=== PATIENT | female | born 2000 | race Two or more races ===

== ENCOUNTER 2023-12-31 16:51 | Emergency (ER) | payer OTHER ==
[~2023-12-31] VITALS: Ht 165.1 cm; Wt 75.0 kg
[2023-12-31 17:00] VITALS: TEMP 98.1
[2023-12-31 18:24] LABS: BASOPHILS % (AUTO) 0.5 % (0.0-2.0); HEMATOCRIT 42.1 % (36-46); HEMOGLOBIN 14.2 g/dL (12.0-16.0); LYMPHOCYTES # (AUTO) 2.1 K/uL (1.0-4.8); LYMPHOCYTES % (AUTO) 33.4 % (22.0-44.0); MEAN CORPUSCULAR HEMOGLOBIN 32.7 pg (26.0-34.0); MEAN CORPUSCULAR HGB CONC 33.8 G/dL (31.0-37.0); MEAN CORPUSCULAR VOLUME 97 fL (80-100); MONOCYTES # (AUTO) 0.5 K/uL (0.1-1.0); MONOCYTES % (AUTO) 8.1 % (2.0-9.0); NEUTROPHILS # (AUTO) 3.3 K/uL (1.8-7.7); PLATELET COUNT (AUTO) 211 K/uL (150-450); RED BLOOD CELL COUNT(AUTO) 4.36 MIL/uL (4.00-5.20); RED CELL DISTRIBUTION WIDTH 12.3 % (11.5-14.5); WHITE BLOOD COUNT (AUTO) 6.2 K/uL (4.5-11.0)
[2023-12-31 18:40] LABS: ANION GAP 9 mmol/L (8-16); CALCIUM, TOTAL 8.8 mg/dL (8.8-10.5); CARBON DIOXIDE 29 mmol/L (22-29); CHLORIDE 100 mmol/L (98-107); CREATININE 0.68 mg/dL (0.60-1.30); GLOMERULAR FILTR. RATE CALC > 60 mL/min (>60); GLUCOSE,RANDOM 94 mg/dL (70-110); POTASSIUM 3.9 mmol/L (3.5-5.1); SODIUM SERUM 138 mmol/L (136-145); UREA NITROGEN, BLOOD 15 mg/dL (7-18)
[2023-12-31] MEDS: ACETAMINOPHEN 500 MG TABLET PO ONE (18:49)
[2023-12-31] MEDS: ONDANSETRON HCL 4 MG/2 ML VIAL IVP ONE (18:49)
[2023-12-31] MEDS: MECLIZINE HCL 25 MG TABLET PO ONE (18:49)
[2023-12-31] MEDS ORDERED: ACET-66 PO (19:10)
[2023-12-31] MEDS ORDERED: MECL-134 PO (19:10)
[2023-12-31 19:59] VITALS: BP 122/65; PULSE 71; RESP 18; O2SAT 97
== END 2023-12-31 20:01 | disposition home or self-care (01) ==
LOC: EMS 16:51
DX: R42 Dizziness and giddiness (principal)
CPT/HCPCS: 99284; 96374; 80048; 82962; 84703; 85025; 36415; 93005; J2405